=== PATIENT | female | born 1970 | race Caucasian/White ===

== ENCOUNTER → 2020-12-22 15:56 | Outpatient (BNVA) | payer SELFPAY | PROVIDERS: Family Provider Nurse Practitioner Family; PCP Nurse Practitioner Family; Visit Provider Nurse Practitioner Family | DX: R53.83 Other fatigue (principal); Z13.6 Encounter for screening for cardiovascular disorders; Z12.39 Encounter for other screening for malignant neoplasm of breast; G47.00 Insomnia, unspecified; G25.81 Restless legs syndrome; Z12.31 Encounter for screening mammogram for malignant neoplasm of breast; R53.82 Chronic fatigue, unspecified; R60.9 Edema, unspecified | CPT/HCPCS: 80053; 80061; 82306; 82607; 84443; 85025 ==

== ENCOUNTER 2021-02-04 11:41 | Outpatient (CLI) | payer BC, SELFPAY ==
--- NOTE | 2021-02-04 12:00 | MM_ITS ---
WS: [id number] BILATERAL DIGITAL SCREENING MAMMOGRAPHY WITH CAD CLINICAL INFORMATION: Z12.39 - Encounter for other screening for malignant neoplasm of breast HISTORY: Screening mammogram. No current complaints. COMPARISON: . TECHNIQUE: Bilateral CC and MLO views. FINDINGS: Scattered fibroglandular densities bilaterally. No suspicious focal mass, asymmetry, calcifications, or architectural distortion. No evidence of malignancy. MM/[place] [id number] IMPRESSION: BI-RADS: 1-Negative FOLLOW UP: 1 Year Follow-up Recommend return to annual screening mammography.
== END 2021-02-04 11:42 | disposition home or self-care (01) ==
LOC: RADSHAW 11:44
PROVIDERS: PCP Nurse Practitioner Family; Visit Provider Nurse Practitioner Family
DX: Z12.31 Encounter for screening mammogram for malignant neoplasm of breast (principal)
CPT/HCPCS: 77067

== ENCOUNTER → 2021-12-27 09:51 | Outpatient (BNVA) | payer OTHER, SELFPAY | PROVIDERS: PCP Nurse Practitioner Family; Visit Provider Nurse Practitioner Family | DX: M25.50 Pain in unspecified joint (principal); G25.81 Restless legs syndrome; Z13.6 Encounter for screening for cardiovascular disorders | CPT/HCPCS: 80053; 80061; 82306; 82607; 83735; 84550; 85025; 85651; 86038; 86140; 86200; 86431 ==

== ENCOUNTER 2022-02-23 14:11 | Outpatient (CLI) | payer OTHER, SELFPAY ==
--- NOTE | 2022-02-23 14:19 | MM_ITS ---
WS: [id number] BILATERAL 3D TOMOSYNTHESIS DIGITAL SCREENING MAMMOGRAPHY WITH CAD CLINICAL INFORMATION: Z12.31 - Encounter for screening mammogram for malignant ... HISTORY: Screening mammogram. No current complaints. COMPARISON: February 04, 2021 TECHNIQUE: Bilateral CC and MLO views. FINDINGS: Scattered fibroglandular densities bilaterally. No suspicious focal mass, asymmetry, calcifications, or architectural distortion. No evidence of malignancy. MM/[place] [id number] IMPRESSION: BI-RADS: 1-Negative FOLLOW UP: 1 Year Follow-up Recommend return to annual screening mammography.
== END 2022-02-23 14:12 | disposition home or self-care (01) ==
PROVIDERS: PCP Nurse Practitioner Family; Visit Provider Nurse Practitioner Family
DX: Z12.31 Encounter for screening mammogram for malignant neoplasm of breast (principal)
CPT/HCPCS: 77063; 77067

== ENCOUNTER 2022-05-19 12:15 | Outpatient (CLI) | payer OTHER, SELFPAY ==
--- NOTE | 2022-05-19 12:22 | XR_ITS ---
WS: [id number] DEXA (DUAL ENERGY X-RAY ABSORPTIOMETRY) Bone mineral density was performed using a MVP Vault machine. HISTORY: SCREENING/ASYMPTOMATIC MENOPAUSAL STATE COMPARISON: None available. Lumbar spine BMD (L1-L4): 1.118 g/cm2 T score: -0.5 Z score: -0.6 Total hip BMD: Left: 0.652 g/cm2. T score: -2.8 Z score: -2.8 Right: 0.743 g/cm2. T score: -2.1 Z score: -2.1 10 year probability of a major osteoporotic fracture is 22%. XR/XR DEXA axial skeleton* [id number] IMPRESSION: OSTEOPOROSIS based upon the WHO classification for females.
== END 2022-05-19 12:16 | disposition home or self-care (01) ==
LOC: RAD 12:16
PROVIDERS: PCP Nurse Practitioner Family; Visit Provider Nurse Practitioner Family
DX: Z78.0 Asymptomatic menopausal state (principal); M81.0 Age-related osteoporosis without current pathological fracture
CPT/HCPCS: 77080

== ENCOUNTER → 2023-01-26 16:00 | Outpatient (BNVA) | payer OTHER, SELFPAY | PROVIDERS: PCP Nurse Practitioner Family; Visit Provider Nurse Practitioner Family | DX: F32.9 Major depressive disorder, single episode, unspecified (principal); R35.0 Frequency of micturition; M54.50 Low back pain, unspecified; R73.9 Hyperglycemia, unspecified; M81.0 Age-related osteoporosis without current pathological fracture | CPT/HCPCS: 81000 ==

== ENCOUNTER → 2023-07-06 09:15 | Outpatient (BNVA) | payer OTHER, SELFPAY | PROVIDERS: PCP Nurse Practitioner Family; Visit Provider Nurse Practitioner Family | DX: M79.672 Pain in left foot (principal) | CPT/HCPCS: 73630 ==

== ENCOUNTER 2024-07-20 20:00 | Inpatient (IN) | payer BC, SELFPAY ==
[2024-07-20] VITALS (12 sets, daily range): BP systolic 124–173; BP diastolic 68–112; PULSE 96–110; RESP 14–29; TEMP 36.6–37.1; O2SAT 95–100; BMI 32.7; BMI 29.7
--- NOTE | 2024-07-20 20:05 | XRR_ITS ---
PROCEDURE INFORMATION: Exam: XR Chest Exam date and time: 07/20/2024 8:09 PM Age: 53 years old Clinical indication: Pain; Chest pressure; Patient HX: EMS arrival for cp with positive st elevation. TECHNIQUE: Imaging protocol: Radiologic exam of the chest. Views: 1 view. COMPARISON: CR XR chest 1V [id number] 08/17/2017 6:11 PM FINDINGS: Tubes, catheters and devices: Overlying pacer paddles and leads. Lungs: Decreased inspiration. Small amount of left basilar atelectasis. No infiltrate or consolidation. Pleural spaces: No pleural effusion or pneumothorax. Heart/Mediastinum: No significant cardiomegaly. Bones/joints: Visualized osseous structures show no acute abnormality. XR/XR chest 1V portable [id number] IMPRESSION: Decreased inspiration with small amount of left basilar atelectasis. No acute findings otherwise.
--- NOTE | 2024-07-20 20:05 | ECG_ITS ---
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1970 Requested By: Ori Munguia Order Number: [id number] Reading MD: Measurements Intervals [place] Rate: 96 P: 18 IA: 165 QRS: -3 QRSD: 81 T: 67 QT: 381 QTc: 481 Interpretive Statements SINUS RHYTHM POSSIBLE RIGHT VENTRICULAR CONDUCTION DELAY [RSR (QR) IN V1/V2] ST ELEVATION, CONSIDER INFERIOR INJURY [MARKED ST ELEVATION W/O NORMALLY INFLECTED T-WAVE IN II/aVF] ACUTE DC Compared to ECG 06/13/2018 10:38:49 ST (T wave) deviation now present Myocardial infarct finding now present Sinus bradycardia no longer present [email or web address]
[2024-07-20] MEDS: clopidogrel 300 mg Tablet 600 MG PO (20:09)
[2024-07-20] MEDS: heparin 5,000 unit/mL INJ 1 mL 4000 UNIT IVP (20:12)
--- NOTE | 2024-07-20 20:13 | XACV_ITS ---
Exam Room: 2 Ht: 170 cm Wt: 95 kg BSA: 2.15 m2 Gender: Female : 1970 Performing Physician(s): Dr. Sow Any Known Allergies: No known allergies Exam Priority: Routine Procedure(s): Procedure Description: Diagnostic procedure Procedure Description: PCI procedure Procedure Description: Drug Eluting Coronary Stent Procedure Description: PTCA Procedure Description: Coronary Angiography Diagnostic Cath Status: Emergency Diagnostic Findings * Inf STEMI. * Left main: Normal. * LAD: Minor irregularities. * Left circumflex artery: Proximal mid segment normal. Distal circumflex artery small vessel in the AV groove with no significant disease. Large size obtuse marginal with 80% thrombotic lesion, culprit for inferior STEMI. * Right coronary artery: No significant disease. Normal. PCI Status: Elective PCI Indication: Immediate PCI for STEMI Interventional Findings * Left main coronary artery was engaged with 6 Yoruba 3.5 XB guider. After IV heparin as per protocol. Run-through coronary wire was crossed through the lesion in the circumflex/obtuse marginal branch. * Predilatation was performed with 2.5 x 12 balloon at 8 jonelle. * Subsequently drug-eluting stent 2.75 x 30 was deployed at 10 jonelle. * Post procedure good angiographic result. ALEXIS-3 flow. * The right groin, the site of arterial access was successfully closed using Angio-Seal. * No complication related to the procedure. Decision for PCI with Surgical Consult: Yes Conclusions 1. Successful primary PCI of circumflex/obtuse marginal artery. Recommendations * Patient transferred to the ICU for post OH management. Interventional RX Recommendation: PCI w/o planned CABG Anticoagulation: Heparin Post Op Diagnosis: Description: Inferior STEMI, successful primary PCI of LCx/obtuse marginal vessel. Left Ventriculography Findings: * Not performed. Pressures Phase:Rest AO : 154 / 114 ( 134 ) @ 4:40:43 PM 148 / 107 ( 127 ) @ 4:40:43 PM 119 / 91 ( 104 ) @ 4:40:43 PM 111 / 81 ( 96 ) @ 4:40:43 PM Clinical Evaluation EBL: 5mL-10mL Procedural Details Pre-Procedure Time Out. Identified patient by full name and date of as verbalized by the patient/guarantor. Does the consent match the physician's order: N/A Emergent; Informed Consent not obtained due to time critical life threat. Inpatient/Outpatient History & Physical on Chart: N/A. Accurate & Complete Informed Consent: N/A Emergent; Informed Consent not obtained due to time critical life threat. If H&P is completed, is and addenduem needed: N/A Emergent; Informed Consent not obtained due to time critical life threat; If yes, is the addendum complete: N/A Emergent; Informed Consent not obtained due to time critical life threat. Visualize and Verify Site with Patient/Guarantor: N/A. Relevant Radiology Images available: N/A Emergent; Informed Consent not obtained due to time critical life threat. Pre-op teaching completed and patient verbalized understanding. The risks, benefits, and alternatives of sedation and/or procedure were discussed by physician. The patient agrees to continue. Procedure started. [facility] Clinical Fraility Score: 3: Managing Well. 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 Chest Pain Symptom Assessment: Typical Angina Symptoms. Cardiovascular Instability: Yes, if yes, Persistant Ischemic Symptoms. Correct patient, site and procedure confirmed by cath team. Current diagnosis: STEMI. PERRLA. Strong, equal hand telephone sex worker bilaterally. Lungs clear x 5 lobes. IV Site on Arrival: 20 gauge in the right anticubital. IV Site on Arrival: 20 gauge in the left anticubital. IV Fluids: 0.9% NaCl at KVO. 600 mL infused prior to incinerator plant laborer. Pre Procedural Pulses: right radial was 3+. Oxygen started at 2liters/min via nasal canula. right groin was prepped with chloroprep then draped in the usual sterile fashion. right radial was prepped with chloroprep then draped in the usual sterile fashion. Physician notified. Baseline sample Acquired. HR: 103 BPM. Patient's family in the incinerator plant laborer waiting room. Dr. Sow will update at the completion of the procedure. Equipment: 6F - Radial. Cardiac Cath Pack. ACIST Manifold Kit Model BT 2000. Heparinized Saline (2 units/mL), 1000 mL bag. Physician arrived. Physician scrubbed in. Immediate Pre-Procedure Time Out. Correct Patient: N/A Emergent; Informed Consent not obtained due to time critical life threat; Correct Procedure: N/A Emergent; Informed Consent not obtained due to time critical life threat; Correct Site: N/A Emergent; Informed Consent not obtained due to time critical life threat; Correct Patient Position: N/A Emergent; Informed Consent not obtained due to time critical life threat; Correct Supplies: N/A Emergent; Informed Consent not obtained due to time critical life threat; Dried Flammable Prep: N/A Emergent; Informed Consent not obtained due to time critical life threat; Blood Products Available: N/A Emergent; Informed Consent not obtained due to time critical life threat;. Lidocaine 1% infiltrated to the right radial. Arterial access obtained. Wire unable to thread. Wire and needle out. Dr. Sow holding monaual pressure. Current Diagnosis : STEMI. An attempt to gain access to the right radial artery was unsuccessful. Manual pressure was held as needed to stop the bleeding. Lidocaine 1% infiltrated to the right groin. Venous access obtained with micropuncture kit. Wire and needle out. Arterial access obtained with micropuncture set. A 6 moldovan JL3.5 catheter in over wire. Multiple views taken of left coronary artery. Catheter removed over the standard wire. 6 moldovan JR 4 guide catheter was inserted over the wire. Multiple views taken of right coronary artery. Guide Catheter removed over the standard wire. Dr. Sow scrubbed out to view cineography. Dr. Sow scrubbed back in. 6 moldovan XB 3.5 guide catheter was inserted over the wire. Runthrough guidewire was advanced through the guide catheter to lesion in the distal Circ. Inflation number : 1 A AB TREK 2.50X12 RX BALLOON was prepped and advanced across the Dist CX , then inflated to 8 JONELLE for 0:10 seconds. Inflation number: 2 The AB TREK 2.50X12 RX BALLOON was reinflated across the Dist CX, to 8 JONELLE for 0:06 seconds. Results checked. Balloon out. Inflation Number : 3 A MDT R MARIELLA 2.75X30 DEVON -Lot Number# [id number] was prepped and advanced across the Dist CX. The stent was deployed at 8 JONELLE for 0:15 seconds. Exp. . Stent balloon out over wire. Results checked. Wire out. PCI Indication : Immediate PCI for STEMI. Inflation number : 4 A AB TREK 2.50X12 RX BALLOON was prepped and advanced across the Dist CX , then inflated to 5 JONELLE for 0:22 seconds. Balloon out. Results checked. Wire out. Guide catheter out over the standard wire. A Right femoral angiogram was performed to determine safe placement of closure device. Lidocaine 1% infiltrated to the right groin. A Angio-Seal VIP ([facility]) was successful obtaining hemostatsis at the Right Femoral artery insertion site. Lot # [id number]. Exp. . Post Procedure: bilateral dorsalis pedis pulse Doppled. Post Procedure: bilateral posterior tibial pulse Doppled. PERRLA. Strong, equal hand telephone sex worker bilaterally. No VTE prophylaxis required. Medication's Wasted: Nitro = 49.8 mg. ACT drawn. Results out of rang high. Medication's Wasted: Heparin = 3000 units. Medication's Wasted: Other = Hydrazaline 10 mg mL. Total IV fluids: 100 mL. PCI Indication: STEMI. Post-op diagnosis: PCI of the Distal CX. Complications: none. Estimated blood loss: 5mL-10mL. Responsiveness - Normal response to verbal stimuli; alert and oriented, PERRLA. Airway - Unaffected, no intervention required; spontaneous ventilation. Circulation: W/N/L, pulses unchanged. Nausea/Vomiting: No. Procedure completed. Patient transferred by bed to ICU. Vital chart was stopped. Access Site Site: Right Femoral artery Sheath Size: 6 Fr Hemostasis Method: Angio-Seal VIP ([facility]) Hemostasis Success: Successful Complication Findings: No complication related to the procedure. Procedure Medications Start: 8:31 PM Stop: 8:31 PM Medication: Versed Amount: 1 mg Route: I.V. Start: 8:32 PM Stop: 8:32 PM Medication: Fentanyl Amount: 50 mcg Route: I.V. Start: 8:37 PM Stop: 8:37 PM Medication: Fentanyl Amount: 25 mcg Route: I.V. Start: 8:54 PM Stop: 8:54 PM Medication: Hydralazine Amount: 10 mg Route: I.V. Start: 9:01 PM Stop: 9:01 PM Medication: Heparin Amount: 8000 units Route: I.V. Start: 9:06 PM Stop: 9:06 PM Medication: Nitrogylcerin Amount: 200 mcg Route: I.C. Start: 9:24 PM Stop: 9:24 PM Medication: Fentanyl Amount: 25 mcg Route: I.V. I, the attending physician, have reviewed and verified all procedure medications. Yes, all medications given per verbal order Report Signatures Finalized by Abel Sow MD on 07/21/2024 08:39 AM
[2024-07-20] MEDS: ondansetron 2 mg/ML SDV 2 mL 4 MG IVP (20:14)
[2024-07-20] MEDS: morphine 4 mg/mL SDV 1 mL IM (20:15)
[2024-07-20 20:19] LABS: Basophils # 0.1 10^3/uL (0.0-0.1); Basophils % 1.2 %; Eosinophils # 0.2 10^3/uL (0.0-0.8); Eosinophils % 3.8 %; Hematocrit 45.1 % (36-47); Lymphocytes # 2.4 10^3/uL (0.8-4.8); Lymphocytes % 38.7 %; Mean Corpuscular HGB Conc 32.6 g/dL (30-55); Mean Corpuscular Hemoglobin 29.2 pg (27-33); Mean Corpuscular Volume 89.5 fl (85-98); Mean Platelet Volume 10.4 fL (7.4-10.4); Monocytes # 0.5 10^3/uL (0.2-0.9); Monocytes % 7.9 %; Neutrophils # 2.92 10^3/uL (1.8-7.7); Neutrophils % 48.1 %; Nucleated Red Blood Cells % 0 %; Platelet Count 295 10^3/cmm (157-399); Red Blood Count 5.04 10^6/uL (3.85-5.65); Red Cell Distribution Width 12.1 % (12.1-15.1); White Blood Count 6.07 10^3/uL (3.29-11.43)
--- NOTE | 2024-07-20 20:21 | ED_ITS ---
HPI - Chest Pain 2 General: Chief Complaint: Chest Pain Stated Complaint: stemi Time Seen by Provider: 07/20/24 20:05 History of Present Illness: 53-year-old female with no prior history of coronary disease. She says that she had pericarditis once before. She presents with chest discomfort. She called an ambulance after having had chest discomfort since around 430 when she was attempting to color her hair. She had had 1 episode prior in the day. She was found by paramedics to have inferior ST elevations on her EKG, and have a heart rate in the 40s. And route, she received aspirin, 1 sublingual nitroglycerin, and 0.5 mg of atropine which helped the heart rate. She rates her pain at an 8. She is mildly short of breath. STEMI alert was called from the field. Related Data Previous Rx's Medication Instructions Recorded ergocalciferol (vitamin D2) 1,250 See Rx Instructions .Route 03/21/22 mcg (50,000 unit) capsule .COMPLEX #12 caps alendronate 70 mg tablet (Fosamax) 70 mg PO .WEEKLY #12 tabs 01/26/23 duloxetine 20 mg capsule,delayed See Rx Instructions .Route 01/26/23 release .COMPLEX #90 ea trazodone 100 mg tablet See Rx Instructions .Route 01/26/23 .COMPLEX #90 tabs diclofenac sodium 75 mg 75 mg PO BID PRN pain #180 tabs 10/30/23 tablet,delayed release cyclobenzaprine 10 mg tablet See Rx Instructions .Route 11/19/23 .COMPLEX #90 tabs ropinirole 0.5 mg tablet See Rx Instructions .Route 03/21/24 .COMPLEX #30 tabs Allergies Allergy/AdvReac Type Severity Reaction Status Date / Time No Known Allergies Allergy Verified 10/30/23 16:14 [facility] ED 2 PFSH: Medical History Osteoporosis History of coronary angiogram GERD (gastroesophageal reflux disease) Restless legs syndrome (RLS) DONNA (obstructive sleep apnea) Surgical History History of tubal ligation History of vaginal surgery History of hysterectomy Social History Smoking and tobacco/nicotine status: never used tobacco/nicotine Second hand smoke exposure: No Alcohol intake: never Lives independently: Yes Household members: spouse Marital status: Current occupational status: employed Current gender identity: Female Physical Exam 2 Const: GENERAL APPEARANCE: cooperative, in distress and ill appearing; not frail appearing HENMT: COMMON NORMALS: normocephalic, atraumatic and Normal external nose present HEAD & SCALP: normocephalic and atraumatic FACE & SINUS: normal facial exam and face symmetric NOSE: Normal external nose present Eye: COMMON NORMALS: Equal, round and reactive pupils present and EOMs intact bilaterally PUPIL: Yes Equal, round and reactive pupils present Neck/C-Spine: GENERAL: Yes trachea midline Chest: CHEST: Yes Symmetrical chest wall rise Resp: COMMON NORMALS: normal respiratory effort, No retractions, No use of accessory muscles and clear to auscultation bilaterally AUSCULTATION: clear to auscultation bilaterally Cardio: COMMON NORMALS: regular rhythm RATE: tachycardic (Mildly) R HYTHM: regular rhythm GI: COMMON NORMALS: Normal to inspection, nondistended, normoactive bowel sounds present Extremity: COMMON NORMALS: no pedal edema Neuro: [place] COMA SCALE: document GCS findings Welcome coma scale eye opening: Spontaneous Welcome coma scale verbal response: Orientated Welcome coma scale motor response: Obey commands [place] coma scale total score: 15 S ENSORY EXAM: Yes extremities (intact) Psych: COMMON NORMALS: speech normal SPEECH: Yes normal speech Skin: COMMON NORMALS: no rashes or lesions noted GENERAL SKIN EXAM: no rashes or lesions noted Course 2 Vital Signs: Vital signs: Vital Signs Temperature 98.7 F 07/20/24 22:30 Pulse Rate 105 H 07/20/24 22:30 Respiratory Rate 22 H 07/20/24 22:30 Blood Pressure 157/75 07/20/24 22:30 Pulse Oximetry 99 07/20/24 22:30 Oxygen Delivery Me thod Room Air 07/20/24 22:30 MDM - Chest Pain Medical Decision Making EKG completed on arrival shows mild ST elevation in leads II, III and aVF. Elevations were more significant on the field EKG. EKG done in the field also shows around 1 mm or less elevation in V5 and V6. Rate is sinus. Intervals are normal. First troponin is 18. CBC is normal. BMP is not remarkable. Chest x- ray shows decreased inspiration without acute findings. Other laboratory available is not remarkable. Cardiology is at the bedside. The patient is received Plavix 600 mg, 4000 of heparin, and had already received 324 mg of aspirin in the field. She is given morphine and Zofran for pain. 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 Lab Data 07/20/24 20:10 07/20/24 20:10 Radiology Impressions Chest X-Ray 07/20/24 20:05 IMPRESSION: Decreased inspiration with small amount of left basilar atelectasis. No acute findings otherwise. Laboratory Results WBC 6.07 10^3/uL (3.29-11.43) 07/20/24 20:10 RBC 5.04 10^6/uL (3.85-5.65) 07/20/24 20:10 Hgb 14.70 g/dL (11.27-16.99) 07/20/24 20:10 Hct 45.1 % (36-47) 07/20/24 20:10 MCV 89.5 fl (85-98) 07/20/24 20:10 MCH 29.2 pg (27-33) 07/20/24 20:10 MCHC 32.6 g/dL (30-55) 07/20/24 20:10 RDW 12.1 % (12.1-15.1) 07/20/24 20:10 Plt Count 295 10^3/cmm (157-399) 07/20/24 20:10 MPV 10.4 fL (7.4-10.4) 07/20/24 20:10 Neut % (Auto) 48.1 % 07/20/24 20:10 Lymph % (Auto) 38.7 % 07/20/24 20:10 [place] % (Auto) 7.9 % 07/20/24 20:10 Eos % (Auto) 3.8 % 07/20/24 20:10 Baso % (Auto) 1.2 % 07/20/24 20:10 Neut # (Auto) 2.92 10^3/uL (1.8-7.7) 07/20/24 20:10 Lymph # (Auto) 2.4 10^3/uL (0.8-4.8) 07/20/24 20:10 [place] # (Auto) 0.5 10^3/uL (0.2-0.9) 07/20/24 20:10 Eos # (Auto) 0.2 10^3/uL (0.0-0.8) 07/20/24 20:10 Baso # (Auto) 0.1 10^3/uL (0.0-0.1) 07/20/24 20:10 Nucleated RBC % (auto) 0 % 07/20/24 20:10 Nucleated RBCs # 0.0 /100WBC 07/20/24 20:10 PT 11.90 SECONDS (12.1-14.9) L 07/20/24 20:10 INR 0.85 (0.8-1.2) 07/20/24 20:10 APTT 26.3 SECONDS (23.9-36.7) 07/20/24 20:10 Sodium 140 mmol/L (136-145) 07/20/24 20:10 Potassium 4.3 mmol/L (3.5-5.1) 07/20/24 20:10 Chloride 104 mmol/L (98-107) 07/20/24 20:10 Carbon Dioxide 25 mmol/L (22-29) 07/20/24 20:10 Anion Gap 15.3 (5-19) 07/20/24 20:10 BUN 13 mg/dL (6-20) 07/20/24 20:10 Creatinine 0.7 mg/dL (0.5-0.9) 07/20/24 20:10 GFR Calculation 86.9 mL/min (90-130) L 07/20/24 20:10 Glucose 144 mg/dL (65-115) H 07/20/24 20:10 Calculated Osmolality 293 mOsm/kg (285-295) 07/20/24 20:10 Calcium 9.6 mg/dL (8.5-10.5) 07/20/24 20:10 Total Bilirubin 0.2 mg/dL (0.15-1.2) 07/20/24 20:10 AST 17 U/L (0-32) 07/20/24 20:10 ALT 24 U/L (0-33) 07/20/24 20:10 Alkaline Phosphatase 122 U/L (35-105) H 07/20/24 20:10 Creatine Kinase 44 U/L (26-192) 07/20/24 20:10 Troponin T Baseline 18 ng/L (0-10) H 07/20/24 20:10 NT-Pro-B Natriuret Pep 86 pg/mL (0-125) 07/20/24 20:10 Total Protein 6.7 g/dL (6.6-8.7) 07/20/24 20:10 Albumin 4.5 g/dL (3.5-5.2) 07/20/24 20:10 Globulin 2.2 g/dL (1.3-4.6) 07/20/24 20:10 All radiology interpretation(s) finalized by discharge Critical Care Time 2 Critical Care Time: Critical Care Time: Yes Total Critical Care Time: 35 Attestation: This case had a high probability of a clinically significant, sudden, or life threatening deterioration of this patient's condition which required my full and direct attention, intervention and personal management. Time is independent of any procedures performed. Discharge Plan Discharge Patient Disposition: Admitted As Inpatient Admit Provider: Abel Sow Clinical Impression: STEMI (ST elevation myocardial infarction) Condition: Critical Coding Level of Care Code ED [facility] [employer] [place] for [facility] Funk
[2024-07-20 20:31] LABS: INR 0.85 (0.8-1.2)
[2024-07-20 20:32] LABS: Partial Thromboplastin Time 26.3 SECONDS (23.9-36.7)
[2024-07-20 20:36] LABS: Alanine Aminotransferase 24 U/L (0-33); Albumin Level 4.5 g/dL (3.5-5.2); Alkaline Phosphatase 122 U/L (35-105); Chloride 104 mmol/L (98-107); Creatine Phosphokinase 44 U/L (26-192); Potassium 4.3 mmol/L (3.5-5.1); Sodium 140 mmol/L (136-145)
[2024-07-20 20:38] LABS: Troponin(5th) Baseline 18 ng/L (0-10)
[2024-07-20 20:52] LABS: Anion Gap 15.3 (5-19); Blood Urea Nitrogen 13 mg/dL (6-20); Calcium 9.6 mg/dL (8.5-10.5); Carbon Dioxide 25 mmol/L (22-29); Creatinine Clr Calc Pharmacy 107.3434; Globulin 2.2 g/dL (1.3-4.6); Glomerular Filtration Rate 86.9 mL/min (90-130); Glucose 144 mg/dL (65-115); Osmolality Calculated 293 mOsm/kg (285-295); Total Bilirubin 0.2 mg/dL (0.15-1.2); Total Protein 6.7 g/dL (6.6-8.7)
[2024-07-20 20:53] LABS: Aspartate Amino Transferase 17 U/L (0-32)
[2024-07-20 21:02] LABS: NT Pro B Type Natriuretic Pept 86 pg/mL (0-125)
--- NOTE | 2024-07-20 21:47 | ECG_ITS ---
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
--- NOTE | 2024-07-20 22:02 | P.HP_ITS ---
Providers/Chief Complaint 2 Admitting Physician: Abel Sow MD Primary Care Provider: LUCAS Jose Chief Complaint: stemi History of Present Illness Chiquita FRITZ is a 53 year old female with no significant past medical history presented with chest pain which she was experiencing throughout the day and it got worse in the evening. The EMS was called and an EKG in the field showed ST elevation in the inferior leads. Had a heart rate slowed down to 40s on the way to hospital and she received atropine by the EMS. EKG on arrival showed ST elevation in the inferior lead III and aVF, consistent with inferior STEMI. Blood pressure 164/96. Pulse 80/min No pulmonary edema She was managed in the ER with STEMI protocol, given 600 mg of Plavix, Disprin 325 mg and 4000 unit of IV heparin. She was emergently brought to the cardiac Customer Experience Consultant. Angiogram revealed co- dominant left system. No significant disease in the LAD and RCA. 80% thrombotic lesion in the large OM branch of LCx. Successful angioplasty was performed. Postprocedure patient is clinically hemodynamically stable. She is chest pain-free. Review of Systems 2 Narrative: Detailed 10 point systemic review unremarkable except for as mentioned above in the history of present illness. Medications/Allergies Home Medications Medication Instructions Recorded Confirmed Last Taken Type ergocalciferol (vitamin D2) 1,250 See Rx Instructions .Route 03/21/22 10/30/23 Unknown Rx mcg (50,000 unit) capsule .COMPLEX #12 caps alendronate 70 mg tablet (Fosamax) 70 mg PO .WEEKLY #12 tabs 01/26/23 10/30/23 Unknown Rx duloxetine 20 mg capsule,delayed See Rx Instructions .Route 01/26/23 10/30/23 Unknown Rx release .COMPLEX #90 ea trazodone 100 mg tablet See Rx Instructions .Route 01/26/23 10/30/23 Unknown Rx .COMPLEX #90 tabs diclofenac sodium 75 mg 75 mg PO BID PRN pain #180 tabs 10/30/23 10/30/23 Unknown Rx tablet,delayed release cyclobenzaprine 10 mg tablet See Rx Instructions .Route 11/19/23 Unknown Rx .COMPLEX #90 tabs ropinirole 0.5 mg tablet See Rx Instructions .Route 03/21/24 Unknown Rx .COMPLEX #30 tabs Allergies Allergy/AdvReac Type Severity Reaction Status Date / Time No Known Allergies Allergy Verified 10/30/23 16:14 PFSH Acute 2 PFSH: Medical History Osteoporosis History of coronary angiogram GERD (gastroesophageal reflux disease) Restless legs syndrome (RLS) DONNA (obstructive sleep apnea) Surgical History History of tubal ligation History of vaginal surgery History of hysterectomy Social History Smoking and tobacco/nicotine status: never used tobacco/nicotine Second hand smoke exposure: No Alcohol intake: never Lives independently: Yes Household members: spouse Marital status: Current occupational status: employed Current gender identity: Female Vitals/I&O/Wt Last Vital Signs Temp 97.8 F 07/20/24 20:00 Pulse 109 H 07/20/24 20:16 Resp 18 07/20/24 20:16 BP 173/112 07/20/24 20:16 Pulse Ox 100 07/20/24 20:16 O2 Del Method Room Air 07/20/24 20:16 Weight last 48 hrs Weight 209 lb Physical Exam 2 Narrative: Patient is now laying comfortably on the bed, post primary angioplasty of circumflex/OM. hemodynamically stable Const: COMMON NORMALS: no acute distress, patient oriented x3, healthy appearing and alert HENMT: OTHER: Normal Eye: OTHER: Normal Chest: OTHER: No sole leveler use of muscles. No tenderness over the chest. Resp: OTHER: Good air entry on auscultation of chest bilaterally. No added sounds. Cardio: OTHER: Normal first and second heart sounds. No added sounds. There is no jugular venous distention. GI: OTHER: Abdominal soft nontender. Bowel sounds audible. Extremity: NARRATIVE EXTREMITY EXAM: No lower extremity edema. Distal pulses palpable. Neuro: OTHER: Grossly intact. She moves all 4 limbs. Skin: NARRATIVE SKIN EXAM: Skin warm and dry. Data 07/20/24 20:10 07/20/24 20:10 A&P Assessment and plan (1) STEMI (ST elevation myocardial infarction): 53-year-old female patient with no significant past medical history presented with - Inferior STEMI Successful primary angioplasty of circumflex/OM branch. Post PCI patient is clinically and hemodynamically stable. No heart failure. Patient is being admitted to ICU for post PCI management of inferior STEMI. Plan: 1. DAPT 2. Statins 3. Low-dose beta-lindsey, starting with metoprolol 12.5 mg 4. Will observe for blood pressure Attestations 2 Medical Necessity Statement*: Acute inferior STEMI. Primary angioplasty of circumflex/OM performed. Coding Level of Care Code 80130 Diagnoses STEMI (ST elevation myocardial infarction) I21.3 Time Spent (min) 35
[2024-07-20] MEDS: metoprolol tartrate 25 mg Tablet PO (22:26)
[2024-07-20] MEDS: temazepam 15 mg Capsule PO (22:26)
[2024-07-20] MEDS: aspirin 325 mg Tablet PO (22:26)
[2024-07-20] MEDS: sodium chloride 0.9% 1,000 ML 50 ML IV (22:28)
[2024-07-21] VITALS (27 sets, daily range): BP systolic 103–162; BP diastolic 56–96; PULSE 74–112; RESP 13–21; TEMP 37–37.1; O2SAT 94–99
--- NOTE | 2024-07-21 01:57 | PC.NURSE ---
TR Band Removed: TR band removed per protocol @0154. Dressing consist of gauze secured w/ tegaderm. Reinforced education on R. Arm restrictions, pt verbalized understanding. See Post Cardiac Cath Flow Sheet for site observations. Radial pulse present, color normal, no hemotoma at this time.
--- NOTE | 2024-07-21 02:05 | ECG_ITS ---
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
[2024-07-21 03:08] LABS: Basophils # 0.1 10^3/uL (0.0-0.1); Basophils % 0.4 %; Eosinophils % 0.2 %; Lymphocytes # 1.6 10^3/uL (0.8-4.8); Lymphocytes % 14.2 %; Mean Corpuscular HGB Conc 32.3 g/dL (30-55); Mean Corpuscular Hemoglobin 29.2 pg (27-33); Mean Corpuscular Volume 90.5 fl (85-98); Mean Platelet Volume 10.7 fL (7.4-10.4); Monocytes # 0.8 10^3/uL (0.2-0.9); Monocytes % 7.5 %; Neutrophils # 8.67 10^3/uL (1.8-7.7); Neutrophils % 77.4 %; Nucleated Red Blood Cells % 0 %; Platelet Count 292 10^3/cmm (157-399); Red Blood Count 4.31 10^6/uL (3.85-5.65); Red Cell Distribution Width 12.1 % (12.1-15.1)
[2024-07-21 03:53] LABS: Anion Gap 11.5 (5-19); Blood Urea Nitrogen 11 mg/dL (6-20); Calcium 8.6 mg/dL (8.5-10.5); Carbon Dioxide 26 mmol/L (22-29); Chloride 107 mmol/L (98-107); Creatinine Clr Calc Pharmacy 119.5597; Glomerular Filtration Rate 103.8 mL/min (90-130); Glucose 176 mg/dL (65-115); Osmolality Calculated 294 mOsm/kg (285-295); Potassium 4.5 mmol/L (3.5-5.1); Sodium 140 mmol/L (136-145)
[2024-07-21] MEDS: acetaminophen 325 mg Tablet 650 MG PO (06:52)
--- NOTE | 2024-07-21 07:55 | PC.NURSE ---
Verbal order from Dr. Sow for Protonix 40mg PO Daily.
[2024-07-21] MEDS: pantoprazole DR 40 mg Tablet PO (08:31)
[2024-07-21] MEDS: aspirin 81 mg EC Tablet PO (08:31)
[2024-07-21] MEDS: clopidogrel 75 mg Tablet PO (08:31)
--- NOTE | 2024-07-21 09:18 | ECG_ITS ---
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1970 Requested By: Abel Sow Order Number: [id number] Reading MD: Measurements Intervals [place] Rate: 81 P: 22 IN: 168 QRS: -41 QRSD: 86 T: -45 QT: 380 QTc: 442 Interpretive Statements SINUS RHYTHM LEFT AXIS DEVIATION [QRS AXIS < -30] POSSIBLE RIGHT VENTRICULAR CONDUCTION DELAY [RSR (QR) IN V1/V2] ST DEVIATION AND MODERATE T-WAVE ABNORMALITY, CONSIDER LATERAL ISCHEMIA [-0.1+ mV T-WAVE IN I/aVL/V5/V6] ST DEVIATION AND MODERATE T-WAVE ABNORMALITY, CONSIDER INFERIOR ISCHEMIA [-0.1+ mV T-WAVE IN II/aVF] [id number]
--- NOTE | 2024-07-21 09:28 | PC.PHAR ---
pharmacy hasnt filled anything since march 2024
--- NOTE | 2024-07-21 10:24 | PM.PN ---
Documented by User: Lucia Nino NP 07/21/24 10:29 Subjective Subjective: This is a very pleasant 53-year-old female who is status post successful primary PCI of circumflex/obtuse marginal artery for STEMI in the inferior region. Patient doing well today. Blood pressure 120/93 oxygen saturation 98 percent on room air. Patient currently on dual antiplatelet therapy with aspirin and Plavix statin therapy. Did receive 1 dose of metoprolol tartrate 25 mg last night. Patient tolerated well. No bradycardia present. No hypotension. Patient denies any chest pain or shortness of breath at this time. No evidence of acute CHF Medications: Reviewed: Yes Vitals/I&O/Wt Last Vital Signs Temp 98.7 F 07/21/24 09:00 Pulse 82 07/21/24 09:00 Resp 20 H 07/21/24 09:00 BP 120/93 07/21/24 09:00 Pulse Ox 97 07/21/24 09:00 O2 Del Method Room Air 07/21/24 09:00 07/20/24 07/21/24 07/21/24 22:59 06:59 14:59 Intake Total 378.333 / 378.333 222 / 222 Output Total 150 / 150 175 / 325 Balance -150 / -150 203.333 / 53.333 222 / 222 Weight last 48 hrs Weight 191 lb 6.4 oz Weight 190 lb 4.8 oz Weight 209 lb Physical Exam Narrative: General: No apparent distress, healthy appearing, well nourished HENMT: normoceophalic Eye: PERRL Neck: No carotid bruit bilaterally Muskuloskeletal: Full ROM Lymphatic: no lymphedema noted Respiratory: Normal respiratory effort, clear to auscultation bilaterally throughout all lung woodson, no use of accessory muscles Cardio: No JVD, regular rate, regular rhythm, S1 S2 normal, no murmurs, peripheral pulses 2+ throughout Extremities: Full ROM, normal, normal capillary refill, no cyanosis or edema Neuro: Alert and oriented x4, no focal motor deficits Psych: Affect normal, denies suicidal ideation, mental status grossly normal Skin: No rashes or lesions noted, no wounds Data 07/22/24 03:38 07/22/24 03:38 A&P Assessment and plan (1) STEMI (ST elevation myocardial infarction): 53-year-old female patient with no significant past medical history presented with - Inferior STEMI Successful primary angioplasty of circumflex/OM branch. Post PCI patient is clinically and hemodynamically stable. No heart failure. Patient may be transferred to CSU at this time. Creatinine wnl. Qualifiers: Involved coronary artery: other inferior wall coronary artery Qualified Code(s): I21.19 - ST elevation (STEMI) myocardial infarction involving other coronary artery of inferior wall Plan Plan: 1. DAPTx2 years 2. Statins 3. Low-dose beta-lindsey, starting with metoprolol 12.5 mg 4. Will observe for blood pressure and heart rate Attestations Medical Necessity Statement*: Patient is status post PCI to the circumflex for inferior STEMI thus requiring at least 2 days of stay. Coding Level of Care Code Acute Code for [facility] Fwd Diagnoses ST elevation myocardial infarction (STEMI) involving other coronary artery of inferior wall I21.19 Involved coronary artery: other inferior wall coronary artery Documented by User: Yuan Shannon MD 07/22/24 08:43 Data 07/22/24 03:38 07/22/24 03:38 A&P Assessment and plan (1) STEMI (ST elevation myocardial infarction): Patient was evaluated and cared for in conjunction with an advanced practice practitioner. I personally examined the patient and reviewed the chart and all pertinent data including imaging, telemetry, and laboratory results. I discussed the patient in detail with the advanced practice practitioner. Please see their note for complete H&P testing result and agreed upon plan of care for the patient. 53-year-old who was treated with drug-eluting stent to obtuse marginal for ST elevation TN. Postop patient continues to do fine from a cardiovascular perspective GENERAL: Patient is alert, awake and oriented x3. HEART: Regular S1 and S2. No murmur, rub or gallop. LUNGS: Clear to auscultate bilaterally. CENTRAL NERVOUS SYSTEM: Grossly nonfocal. EXTREMITIES: Lower extremities with out edema bilaterally. Assessment and plan ST elevation TN inferolateral: Status post PCI to obtuse marginal with single drug-eluting stent which was the culprit vessel. Continue dual antiplatelet therapy for 1 year continue aspirin statin beta-lindsey. Echocardiogram showed normal ejection fraction Hypertension: Moderately elevated will optimize medications. Will add LANA inhibitor Hyperlipidemia: Continue statin Plan: Possible discharge tomorrow 53-year-old female patient with no significant past medical history presented with - Inferior STEMI Successful primary angioplasty of circumflex/OM branch. Post PCI patient is clinically and hemodynamically stable. No heart failure. Patient may be transferred to CSU at this time. Creatinine wnl. Qualifiers: Involved coronary artery: other inferior wall coronary artery Qualified Code(s): I21.19 - ST elevation (STEMI) myocardial infarction involving other coronary artery of inferior wall Coding Level of Care Code Acute Code for [facility] Fwd Diagnoses ST elevation myocardial infarction (STEMI) involving other coronary artery of inferior wall I21.19 Involved coronary artery: other inferior wall coronary artery
[2024-07-21] MEDS: acetaminophen-codeine 300-30mg Tablet 1 TAB PO ×2 (13:46→18:53)
[2024-07-21] MEDS: temazepam 15 mg Capsule PO (19:58)
[2024-07-21] MEDS: metoprolol succinate ER (24 HR) 25 mg Tablet 12.5 MG PO (19:59)
[2024-07-21] MEDS: atorvastatin 40 mg Tablet PO (20:00)
--- NOTE | 2024-07-21 21:51 | USCV_ITS ---
Chiquita Gaspar Age: 53 Gender: F : 1970 Exam Date: 07/21/2024 09:34 Ordering Phys: Abel Sow MD ([email or web address]) Technologist: [place] [facility] [place]: cp BP: 141 / 88 HR: 109 Rhythm: Sinus Technical Quality: Adequate MEASUREMENTS (Male / Female) Normal Values 2D ECHO LV Diastolic Diameter PLAX 4.4 cm 4.2 - 5.9 / 3.9 - 5.3 cm IVS Diastolic Thickness 1.4 cm 0.6 - 1.0 / 0.6 - 0.9 cm IVS Systolic Thickness 1.7 cm LVPW Diastolic Thickness 1.1 cm 0.6 - 1.0 / 0.6 - 0.9 cm LVPW Systolic Thickness 1.7 cm LVOT Diameter 2.2 cm LV Ejection Fraction 2D Teich 61.1 % LV Ejection Fraction MOD 4C 58.9 % LV Ejection Fraction MOD 2C 56.0 % LV Ejection Fraction 2C AL 54.2 % LA Diameter 2.9 cm RA Systolic Volume 4C AL 25.4 ml RA Systolic Volume 4C MOD 23.1 ml Aorta at Sinotubular Diameter 3.1 cm M-MODE LA Ao Ratio MM 0.9 AV Cusp Separation MM 2.2 cm DOPPLER AV Peak Velocity 132.0 cm/s LVOT Peak Velocity 79.0 cm/s AV Area Cont Eq vti 2.7 cm squared AV Area Cont Eq pk 2.3 cm squared MV Peak Velocity 137.0 cm/s MV Area PHT 6.2 cm squared Mitral E to A Ratio 0.8 TV Peak Velocity 180.0 cm/s TR Peak Velocity 230.0 cm/s TR Peak Gradient 21.2 mmHg TV Peak E Velocity 75.0 cm/s Right Atrial Pressure 3.0 mmHg Pulmonary Artery Systolic Pressu 24.2 mmHg PV Peak Velocity 98.0 cm/s FINDINGS Left Ventricle Normal left ventricular cavity size. Normal left ventricular systolic function. Left ventricular ejection fraction is estimated at 60 %. No wall motion abnormality.Grade I/IV diastolic dysfunction (abnormal relaxation filling pattern), normal to mildly elevated filling pressures. Right Ventricle The right ventricle is normal in size and function. Right Atrium The right atrium is normal in size. Left Atrium The left atrium is normal in size. Mitral Valve Mildly thickened mitral valve. No mitral valve stenosis. Mild mitral valve regurgitation. Aortic Valve Structurally normal aortic valve without significant sclerosis or stenosis. There is no aortic regurgitation. Tricuspid Valve Structurally normal tricuspid valve without significant stenosis or regurgitation. Pulmonary artery systolic pressure is normal. Pulmonic Valve Structurally normal pulmonic valve without significant stenosis. There is no pulmonic regurgitation. Pericardium Normal pericardium without effusion. Aorta Normal ascending aorta dimension. IVC The inferior vena cava appears normal. CONCLUSIONS Normal left ventricular cavity size. Normal left ventricular systolic function. Left ventricular ejection fraction is estimated at 60 %. No wall motion abnormality.Grade I/IV diastolic dysfunction (abnormal relaxation filling pattern), normal to mildly elevated filling pressures. Mildly thickened mitral valve. No mitral valve stenosis. Mild mitral valve regurgitation. There is no pericardial effusion. Pulmonary artery systolic pressure is within normal limits. Right atrial pressure is around 5 mm of mercury. Yuan Shannon MD (Electronically Signed) Final Date: 22 July 2024 06:43 S
[2024-07-22] VITALS (29 sets, daily range): BP systolic 123–161; BP diastolic 77–110; PULSE 2–108; RESP 13–25; TEMP 37–37.7; O2SAT 92–98
[2024-07-22 04:05] LABS: Basophils # 0.1 10^3/uL (0.0-0.1); Eosinophils # 0.2 10^3/uL (0.0-0.8); Eosinophils % 2.9 %; Hematocrit 41.5 % (36-47); Lymphocytes # 1.9 10^3/uL (0.8-4.8); Lymphocytes % 23.1 %; Mean Corpuscular HGB Conc 31.6 g/dL (30-55); Mean Corpuscular Hemoglobin 29.5 pg (27-33); Mean Corpuscular Volume 93.5 fl (85-98); Mean Platelet Volume 10.5 fL (7.4-10.4); Monocytes # 0.8 10^3/uL (0.2-0.9); Monocytes % 9.3 %; Neutrophils # 5.25 10^3/uL (1.8-7.7); Neutrophils % 63.3 %; Nucleated Red Blood Cells % 0 %; Platelet Count 279 10^3/cmm (157-399); Red Blood Count 4.44 10^6/uL (3.85-5.65); Red Cell Distribution Width 12.4 % (12.1-15.1); White Blood Count 8.28 10^3/uL (3.29-11.43)
[2024-07-22 04:22] LABS: Anion Gap 13.4 (5-19); Blood Urea Nitrogen 8 mg/dL (6-20); Calcium 9.2 mg/dL (8.5-10.5); Carbon Dioxide 29 mmol/L (22-29); Chloride 102 mmol/L (98-107); Creatinine Clr Calc Pharmacy 119.8935; Glomerular Filtration Rate 103.8 mL/min (90-130); Glucose 127 mg/dL (65-115); Osmolality Calculated 290 mOsm/kg (285-295); Potassium 4.4 mmol/L (3.5-5.1); Sodium 140 mmol/L (136-145)
[2024-07-22] MEDS: pantoprazole DR 40 mg Tablet PO (09:13)
[2024-07-22] MEDS: ropinirole 0.25 mg Tablet 0.5 MG PO (09:13)
[2024-07-22] MEDS: aspirin 81 mg EC Tablet PO (09:13)
[2024-07-22] MEDS: clopidogrel 75 mg Tablet PO (09:13)
[2024-07-22] MEDS: metoprolol succinate ER (24 HR) 25 mg Tablet PO (09:25)
[2024-07-22] MEDS: lisinopril 5 mg Tablet PO (11:05)
--- NOTE | 2024-07-22 15:07 | P.DS_ITS ---
Discharge Providers Date of Admission: 07/20/24 21:51 Date of Discharge: July 22, 2024 Attending Provider at Admission: Abel Sow MD Attending Provider at Discharge: Yuan Shannon MD Primary Care Provider: LUCAS Jose Diagnoses at Discharge Discharge Diagnosis (1) STEMI (ST elevation myocardial infarction): Details from hospital stay: Patient status post PCI to the circumflex OM. Patient denies any further chest pain. Will need to continue dual antiplatelet therapy for at least 1 year. Continue beta-lindsey. Metoprolol succinate 25 mg was started here. Status: Acute Qualifiers: Involved coronary artery: other inferior wall coronary artery Qualified Code(s): I21.19 - ST elevation (STEMI) myocardial infarction involving other coronary artery of inferior wall (2) Hypertension: Details from hospital stay: Lisinopril 5 mg added as well as metoprolol increased to 25 mg daily. Patient to keep a blood pressure and heart rate log and follow-up in the clinic in 1 week. Status: Acute Qualifiers: Hypertension type: primary hypertension Qualified Code(s): I10 - Essential (primary) hypertension Reason for Visit Reason for Visit: stemi Brief History: Chiquita FRITZ is a 53 year old female with no significant past medical history presented with chest pain which she was experiencing throughout the day and it got worse in the evening. The EMS was called and an EKG in the field showed ST elevation in the inferior leads. Had a heart rate slowed down to 40s on the way to hospital and she received atropine by the EMS. EKG on arrival showed ST elevation in the inferior lead III and aVF, consistent with inferior STEMI. Hospital Course Hospital Course She was managed in the ER with STEMI protocol, given 600 mg of Plavix, Aspirin 325 mg and 4000 unit of IV heparin. 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 Angiogram revealed co- dominant left system. No significant disease in the LAD and RCA. 80% thrombotic lesion in the large OM branch of LCx. Successful angioplasty was performed. Postprocedure patient is clinically hemodynamically stable. She is chest pain-free. Her blood pressure was stable. Physical Exam Narrative: General: No apparent distress, healthy appearing, well nourished HENMT: normoceophalic Eye: PERRL Neck: No carotid bruit bilaterally Muskuloskeletal: Full ROM Lymphatic: no lymphedema noted Respiratory: Normal respiratory effort, clear to auscultation bilaterally throughout all lung woodson, no use of accessory muscles Cardio: No JVD, regular rate, regular rhythm, S1 S2 normal, no murmurs, peripheral pulses 2+ throughout Extremities: Full ROM, normal, normal capillary refill, no cyanosis or edema Neuro: Alert and oriented x4, no focal motor deficits Psych: Affect normal, denies suicidal ideation, mental status grossly normal Skin: right groin heart cath insertion site clean dry intact well-approximated no signs or symptoms of hematoma evident Discharge Data Studies Completed and Pending Completed Studies During Hospitalization Category Date Time Status CLIENT SERVICE SUPERVISOR request for service Stat Exams 07/20/24 20:13 Completed XR chest 1V portable [id number] Stat Exams 07/20/24 20:05 Completed CV. echo complete* [id number] Routine Ultrasound 07/21/24 21:51 Completed Radiology Impressions Chest X-Ray 07/20/24 20:05 IMPRESSION: Decreased inspiration with small amount of left basilar atelectasis. No acute findings otherwise. Laboratory Results WBC 8.28 10^3/uL (3.29-11.43) 07/22/24 03:38 RBC 4.44 10^6/uL (3.85-5.65) 07/22/24 03:38 Hgb 13.10 g/dL (11.27-16.99) 07/22/24 03:38 Hct 41.5 % (36-47) 07/22/24 03:38 MCV 93.5 fl (85-98) 07/22/24 03:38 MCH 29.5 pg (27-33) 07/22/24 03:38 MCHC 31.6 g/dL (30-55) 07/22/24 03:38 RDW 12.4 % (12.1-15.1) 07/22/24 03:38 Plt Count 279 10^3/cmm (157-399) 07/22/24 03:38 MPV 10.5 fL (7.4-10.4) H 07/22/24 03:38 Neut % (Auto) 63.3 % 07/22/24 03:38 Lymph % (Auto) 23.1 % 07/22/24 03:38 [place] % (Auto) 9.3 % 07/22/24 03:38 Eos % (Auto) 2.9 % 07/22/24 03:38 Baso % (Auto) 1.0 % 07/22/24 03:38 Neut # (Auto) 5.25 10^3/uL (1.8-7.7) 07/22/24 03:38 Lymph # (Auto) 1.9 10^3/uL (0.8-4.8) 07/22/24 03:38 [place] # (Auto) 0.8 10^3/uL (0.2-0.9) 07/22/24 03:38 Eos # (Auto) 0.2 10^3/uL (0.0-0.8) 07/22/24 03:38 Baso # (Auto) 0.1 10^3/uL (0.0-0.1) 07/22/24 03:38 Nucleated RBC % (auto) 0 % 07/22/24 03:38 Nucleated RBCs # 0.0 /100WBC 07/22/24 03:38 PT 11.90 SECONDS (12.1-14.9) L 07/20/24 20:10 INR 0.85 (0.8-1.2) 07/20/24 20:10 APTT 26.3 SECONDS (23.9-36.7) 07/20/24 20:10 Sodium 140 mmol/L (136-145) 07/22/24 03:38 Potassium 4.4 mmol/L (3.5-5.1) 07/22/24 03:38 Chloride 102 mmol/L (98-107) 07/22/24 03:38 Carbon Dioxide 29 mmol/L (22-29) 07/22/24 03:38 Anion Gap 13.4 (5-19) 07/22/24 03:38 BUN 8 mg/dL (6-20) 07/22/24 03:38 Creatinine 0.6 mg/dL (0.5-0.9) 07/22/24 03:38 GFR Calculation 103.8 mL/min (90-130) 07/22/24 03:38 Glucose 127 mg/dL (65-115) H 07/22/24 03:38 Calculated Osmolality 290 mOsm/kg (285-295) 07/22/24 03:38 Calcium 9.2 mg/dL (8.5-10.5) 07/22/24 03:38 Total Bilirubin 0.2 mg/dL (0.15-1.2) 07/20/24 20:10 AST 17 U/L (0-32) 07/20/24 20:10 ALT 24 U/L (0-33) 07/20/24 20:10 Alkaline Phosphatase 122 U/L (35-105) H 07/20/24 20:10 Creatine Kinase 44 U/L (26-192) 07/20/24 20:10 Troponin T Baseline 18 ng/L (0-10) H 07/20/24 20:10 NT-Pro-B Natriuret Pep 86 pg/mL (0-125) 07/20/24 20:10 Total Protein 6.7 g/dL (6.6-8.7) 07/20/24 20:10 Albumin 4.5 g/dL (3.5-5.2) 07/20/24 20:10 Globulin 2.2 g/dL (1.3-4.6) 07/20/24 20:10 Procedures Performed Left heart cath Conclusions 1. Successful primary PCI of circumflex/obtuse marginal artery. Vitals Last Vital Signs Temp 100 F H 07/22/24 13:45 Pulse 100 07/22/24 14:30 Resp 17 07/22/24 13:45 BP 154/98 07/22/24 13:30 Pulse Ox 96 07/22/24 13:30 O2 Del Method Room Air 07/22/24 13:30 Discharge Plan Discharge Patient Disposition: Home Condition: Stable Prescriptions: New atorvastatin 40 mg Tablet 40 mg PO BEDTIME 30 Days Qty: 30 0RF clopidogrel 75 mg Tablet 75 mg PO DAILY 90 Days Qty: 90 3RF aspirin 81 mg Tablet,Delayed Release (Dr/Ec) 81 mg PO DAILY 90 Days Qty: 90 3RF nitroglycerin 0.4 mg Tablet, Sublingual 0.4 mg sublingual Q5M PRN (Reason: Chest Pain) 30 Days Qty: 20 0RF metoprolol succinate 25 mg Tablet Extended Release 24 Hr 25 mg PO DAILY 30 Days Qty: 30 0RF lisinopril 5 mg tablet 5 mg PO DAILY Qty: 1 0RF Continued ropinirole 0.5 mg tablet See Rx Instructions .ROUTE .COMPLEX Qty: 30 0RF Dose Instruction: TAKE ONE TABLET BY MOUTH ONCE DAILY. Rx Instructions: TAKE ONE TABLET BY MOUTH ONCE DAILY. Discharge Orders: Discharge Order (Routine); Ordered 07/22/24 Ordered By: Lucia Nino Referrals: Carmen Aguiar FNP [Nurse Practitioner] - 08/05/24 3:00 pm Discharge Diet: Advance as tolerated and Cardiac Patient Instructions: Metoprolol (By mouth), Lisinopril (By mouth), Aspirin (By mouth), Nitroglycerin, Rapid Release (By mouth) (NitroMist, Nitrolingual,..., Atorvastatin (By mouth), Clopidogrel (By mouth), Heart Attack (DC), Coronary Angioplasty (DC), Heart Healthy Diet (ED), Heart Healthy Diet (DC), Opioid Safety Activity Restrictions/Additional Instructions: Discussed with patient no heavy lifting more than a gallon of milk as well as going up or down steps for 3 days. No driving for 3 days. Monitor for and report signs or symptoms of bleeding. Monitor for and report s/s of infection such as fever 101 or greater, swelling, redness or pain to the groin. Plan of Treatment: Plan is to continue dual antiplatelet therapy aspirin Plavix x 1 year continue statin therapy continue beta-lindsey and LANA inhibitor. Patient to follow-up in the clinic in 1 week with blood pressure and heart rate log. Discharge Attestations Time Spent in Discharge Care*: less than 30 min Quality Metrics Clinical Quality Measures [ No reported AMI, CVA or VTE this stay] Coding Level of Care Code Acute Code for [facility] Fwd Diagnoses ST elevation myocardial infarction (STEMI) involving other coronary artery of inferior wall I21.19 Involved coronary artery: other inferior wall coronary artery Primary hypertension I10 Hypertension type: primary hypertension
== END 2024-07-22 15:05 | disposition home or self-care (01) | DRG 322 ==
LOC: ER 21:50 → ICU 22:56
PROVIDERS: Nurse Practitioner Family; Admitting Provider Internal Medicine Cardiovascular Disease; Emergency Provider Emergency Medicine; PCP Nurse Practitioner Family; Visit Provider Internal Medicine Cardiovascular Disease
PROC: 027034Z Dilation of Coronary Artery, One Artery with Drug-eluting Intraluminal Device, Percutaneous Approach (ICD-10-PCS; principal; 2024-07-20 20:20)
DX: I21.19 ST elevation (STEMI) myocardial infarction involving other coronary artery of inferior wall (principal); I10 Essential (primary) hypertension; G25.81 Restless legs syndrome; G47.33 Obstructive sleep apnea (adult) (pediatric)
CPT/HCPCS: 36415; 71045; 80048; 80053; 82550; 83880; 84484; 85025; 85347; 85610; 85730; 93005; 93306; 93454; 96374; 96375; 96376; 99152; 99153; C1725; C1760; C1769; C1874; C1887; C1894; C9600; G0269; J0360; J1644; J2250; J2270; J2405; J3010; J3490; J7030; Q9967

== ENCOUNTER → 2024-08-05 16:27 | Outpatient (BNVA) | payer BC, SELFPAY | PROVIDERS: PCP Nurse Practitioner Family; Visit Provider Nurse Practitioner Family | DX: I25.10 Atherosclerotic heart disease of native coronary artery without angina pectoris (principal); I10 Essential (primary) hypertension; I25.2 Old myocardial infarction | CPT/HCPCS: 36415; 80048 ==

== ENCOUNTER → 2024-09-18 10:37 | Outpatient (BNVA) | payer BC, SELFPAY | PROVIDERS: PCP Nurse Practitioner Family; Visit Provider Nurse Practitioner Family | DX: I10 Essential (primary) hypertension (principal); R53.83 Other fatigue | CPT/HCPCS: 80053; 80061; 82306; 82607; 83036; 83735; 84443; 85025 ==

== ENCOUNTER 2024-12-03 08:04 | Outpatient (CLI) | payer BC, SELFPAY ==
--- NOTE | 2024-12-03 08:27 | ECG_ITS ---
[employer] Test Date: 2024-12-03 Pat Name: Chiquita Gaspar Department: Room: Gender: Female Rounder Hand: : 1970 Requested By: Yuan Shannon Order Number: [id number] Elaine MD: Rainer Henley M.D. Interpretive Statements Lung unchanged pre/post procedure; Intraprocedure shortess of breath; Symptoms resoled by discharge PROCEDURE: The baseline electrocardiogram showed [normal sinus rhythm with nonspecific T wave changes. Occasional PVCs. At the baseline, the patient's blood pressure was 158/102 mm Hg with a heart rate of 96. The patient exercised for 4 minutes on a standard Maximilian protocol. Patient attained a maximum heart rate of 169 beats per minute(103% of the maximum predicted heart rate) with a blood pressure at the peak exercise of 196/102 mm Hg. The EKG at the peak exercise revealed no significant changes. The PVCs disappeared with the peak exercise. Patient did not have any chest pain or any significant arrhythmis with the exercise Sestamibi was injected 1 minute prior to the peak exercise During the recovery phase, there were no new changes. The EKG reverted back to the baseline Blood pressure at the end of the recovery phase was 171/100 mm Hg with a heart rate of 91 per minute. CONCLUSION: 1. No significant EKG changes with the treadmill exercise 2. No exercise-induced chest pain or cardiac arrhythmia. The baseline ventricular arrhythmia disappeared with the peak exercise 3. Slightly impaired exercise tolerance, attained a maximum of 7.0 METs 4. Sestamibi/Sestamibi perfusion results pending; see separate report. Electronically Signed On 12-05-2024 16:09:37 CDT by Rainer Henley M.D. [email or web address]
--- NOTE | 2024-12-03 08:28 | NMCV_ITS ---
NM lorenzo perf SPECT r/s* [id number] Chiquita Gaspar Age: 54 Gender: F : 1970 Exam Date: 12/03/2024 09:02 Ordering Phys: Yuan Shannon MD ([email or web address]) Technologist: JENELLE Thornton Exam Location: [facility] Indications: cp STRESS TEST [facility] IMAGE PROTOCOL Rest/Stress 1 Exercise Day Radiopharmaceutical Dose (mCi) Administration Site Administered by Rest: Tc-99m 10.8 IV JENELLE Castellon Sestamibi Stress:Tc-99m 32.7 IV JENELLE Thornton Sestamito Rest: 03-Dec-2024 60 Discovery 630 Stress: 03-Dec-2024 15 Discovery 630 Radiopharmaceutical was injected at 89 % maximum heart rate. Images obtained in supine and prone position. SPECT RESULTS Technical Quality: Good Raw Data Analysis: Normal Image Corrections: No attenuation or motion correction applied Summed Stress Score: 16 Summed Rest Score: 12 Summed Difference Score: 4 PERFUSION FINDINGS Moderate to large area of moderate to severely decreased tracer uptake involving the inferior, inferolateral, anterolateral and apical regions. Some reversibility was noted in the anterolateral and apical anterior region. FUNCTIONAL RESULTS (calculated via Gated SPECT) Stress Image LV EF (%): 49 Stress EDV (mL):89 TID: 1.03 Stress ESV (mL):45 FUNCTIONAL FINDINGS: Segmental wall motion analysis revealed a mild diffuse hypokinesia of the inferolateral and apical region IMPRESSIONS 1. Myocardial perfusion imaging revealing moderate to large area of persistent decreased tracer uptake involving the inferior, inferolateral and apical regions with some area of reversibility in the anterolateral and apical regions suggesting extensive myocardial scarring involving the distribution of the right coronary artery and circumflex artery with some areas of ischemia in the circumflex territory. The summed difference score was 4 with stress score of 16. 2. LV ejection fraction of 49%. 3. LV wall motion analysis revealing mild diffuse hypokinesia of the inferolateral and apical regions. 4. LV volume, upper limit of normal, end-systolic volume of 45 mL. No similar previous studies are available for comparison Dr Rainer Henley MD FAC (Electronically Signed) Final Date: 03 December 2024 13:31 S
[2024-12-03 09:59] VITALS: BP 172/99; PULSE 89
== END 2024-12-03 08:05 | disposition home or self-care (01) ==
LOC: CDL 08:05
PROVIDERS: PCP Nurse Practitioner Family; Visit Provider Internal Medicine Cardiovascular Disease
DX: R07.9 Chest pain, unspecified (principal); R93.1 Abnormal findings on diagnostic imaging of heart and coronary circulation
CPT/HCPCS: 36415; 78452; 93017; A9500

== ENCOUNTER 2025-02-19 10:00 | Outpatient (CLI) | payer BC, SELFPAY ==
[2025-02-19 11:03] LABS: Basophils # 0.1 10^3/uL (0.0-0.1); Basophils % 0.9 %; Eosinophils # 0.2 10^3/uL (0.0-0.8); Eosinophils % 3.1 %; Hematocrit 41.3 % (36-47); Lymphocytes % 26.3 %; Mean Corpuscular HGB Conc 32.2 g/dL (30-55); Mean Corpuscular Hemoglobin 29.3 pg (27-33); Mean Platelet Volume 10.4 fL (7.4-10.4); Monocytes # 0.6 10^3/uL (0.2-0.9); Monocytes % 7.6 %; Neutrophils # 4.78 10^3/uL (1.8-7.7); Neutrophils % 61.8 %; Nucleated Red Blood Cells % 0 %; Platelet Count 305 10^3/cmm (157-399); Red Blood Count 4.54 10^6/uL (3.85-5.65); Red Cell Distribution Width 11.9 % (12.1-15.1); White Blood Count 7.73 10^3/uL (3.29-11.43)
[2025-02-19 11:27] LABS: Anion Gap 13.6 (5-19); Blood Urea Nitrogen 21 mg/dL (6-20); Carbon Dioxide 28 mmol/L (22-29); Chloride 105 mmol/L (98-107); Glomerular Filtration Rate 74.2 mL/min (90-130); Glucose 114 mg/dL (65-115); Osmolality Calculated 298 mOsm/kg (285-295); Potassium 4.6 mmol/L (3.5-5.1); Sodium 142 mmol/L (136-145)
== END 2025-02-19 10:01 | disposition home or self-care (01) ==
PROVIDERS: PCP Nurse Practitioner Family; Visit Provider Nurse Practitioner Family
DX: I25.10 Atherosclerotic heart disease of native coronary artery without angina pectoris (principal); I10 Essential (primary) hypertension
CPT/HCPCS: 36415; 80048; 85025

== ENCOUNTER 2025-03-02 07:36 | Outpatient (CLI) | payer BC, SELFPAY ==
--- NOTE | 2025-02-27 12:11 | PC.NURSE ---
called and left message about pre cath instructions and advised to call back if patient has any questions.
[2025-03-02] VITALS (19 sets, daily range): BP systolic 115–161; BP diastolic 63–117; PULSE 58–84; RESP 13–18; TEMP 36.7; O2SAT 93–97; BMI 29.9
--- NOTE | 2025-03-02 07:30 | XACV_ITS ---
Exam Room: 2 Ht: 170 cm Wt: 87 kg BSA: 2.05 m2 Gender: Female : 1970 Any Known Allergies: No known allergies Exam Priority: Routine Procedure(s): Procedure Description: Diagnostic procedure Procedure Description: Left Heart Catheterization Procedure Description: Left ventriculography Procedure Description: Coronary Angiography Diagnostic Cath Status: Elective Diagnostic Findings * INDICATION: Chest pain/ worsening dyspnea on exertion/abnormal stress test. * No significant disease noted in the Left Main, Left Anterior Descending, Right, or Circumflex coronary arteries. * Coronary angiography shows right dominance. Conclusions 1. No significant disease noted in the Left Main, Left Anterior Descending, Right, or Circumflex coronary arteries. 2. Mild left ventricular systolic dysfunction. Ejection fraction of 40%. Recommendations * Aggressive risk factor modification. * Outpatient cardiology follow up in 2 weeks. Interventional RX Recommendation: medical therapy and/or counseling Diagnostic RX Recommendation: medical therapy and/or counseling Anticoagulation: Heparin Ventriculography Ejection Fraction: 40.0 % Pressures Phase:Rest AO : 107 / 86 ( 97 ) @ 9:53:00 AM 127 / 78 ( 100 ) @ 9:57:00 AM 146 / 84 ( 112 ) @ 9:57:00 AM LV : 154 / 2 / 24 @ 9:56:00 AM 147 / 3 / 24 @ 9:57:00 AM 143 / 3 / 23 @ 9:57:00 AM Valves Phase:DefaultPhase AV : 14.0 @ 9:02:18 AM AV Mean Gradient: 17.0 @ 9:02:18 AM Clinical Evaluation EBL: 5mL-10mL Procedural Details Procedure Consent Obtained. Pre-Procedure Time Out. Identified patient by full name and date of as verbalized by the patient/guarantor. Does the consent match the physician's order: Yes. Accurate & Complete Informed Consent: Yes. Inpatient/Outpatient History & Physical on Chart: Yes. If H&P is completed, is and addenduem needed: No; If yes, is the addendum complete: N/A. Visualize and Verify Site with Patient/Guarantor: N/A. Relevant Radiology Images available: Yes. Pre-op teaching completed and patient verbalized understanding. The risks, benefits, and alternatives of sedation and/or procedure were discussed by physician. The patient agrees to continue. Procedure started. Current Diagnosis : Chest Pain. [facility] Clinical Fraility Score: 3: Managing Well. 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 Chest Pain Symptom Assessment: Typical Angina Symptoms. Correct patient, site and procedure confirmed by cath team. Current diagnosis: Chest Pain. PERRLA. 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 Lungs clear x 5 lobes. IV Site on Arrival: 20 gauge in the left anticubital. IV Fluids: 0.9% NaCl at KVO. 0 mL infused prior to laborer pole crew. Pre Procedural Pulses: bilateral dorsalis pedis was 3+. Pre Procedural Pulses: bilateral posterior tibial was 2+. Pre Procedural Pulses: bilateral radial was 2+. Oxygen started at 2liters/min via nasal canula. right groin was prepped with chloroprep then draped in the usual sterile fashion. right radial was prepped with chloroprep then draped in the usual sterile fashion. Baseline sample Acquired. HR: 68 BPM. Physician arrived. Physician scrubbed in. Immediate Pre-Procedure Time Out. Correct Patient: Yes; Correct Procedure: Yes; Correct Site: Yes; Correct Patient Position: Yes; Correct Supplies: Yes; Dried Flammable Prep: Yes; Blood Products Available: N/A;. Ultrasound being used to obtain arterial access. Lidocaine 1% infiltrated to the right radial. Arterial access obtained. Lidocaine 1% infiltrated to the right radial. A 5 grenadian TIG catheter in over wire. Multiple views taken of left coronary artery. Catheter redirected to the RCA. Multiple views taken of right coronary artery. Catheter removed over the exchange wire. A 5 grenadian Angled Pig catheter in over wire. EDP Sample taken: LV 154/2,24; HR: 83 BPM; SpO2: 97%. LV gram performed in AGUILAR @ 10 mL/second for a total of 30 mL. EDP Sample taken: LV 147/3,24; HR: 76 BPM; SpO2: 97%. Pullback taken: LV 143/3,23; AO 127/78(100); Mean: 17mmHg, Peak to Peak: 14mmHg, SEP: 23sec/min; HR: 77 BPM; SpO2: 97%. Catheter removed over the exchange wire. Vital chart was stopped. A TR Band was successful obtaining hemostatsis at the Right Radial artery insertion site. Post Procedure: Pulses reassessed and unchanged. PERRLA. 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 No VTE prophylaxis required. Medication's Wasted: Other = Fentanyl 25mcg Versed 1 mg. Medication's Wasted: Lidocaine 1% = 17 mL. Total IV fluids: 20 mL. Medication's Wasted: Nitro = 49.8 mcg. Medication's Wasted: Heparin = 1000 units. Post-op diagnosis: Non-obstructive CAD. Complications: None. Estimated blood loss: 5mL-10mL. Responsiveness - Normal response to verbal stimuli; alert and oriented, PERRLA. Airway - Unaffected, no intervention required; spontaneous ventilation. Circulation: W/N/L, pulses unchanged. Nausea/Vomiting: No. Procedure completed. Patient transferred by wheelchair to CPRU. Access Site Site: Right Radial artery Sheath Size: 6 Fr Hemostasis Method: TR Band Hemostasis Success: Successful Procedure Medications Start: 8:43 AM Stop: 8:43 AM Medication: Versed Amount: 1 mg Route: I.V. Start: 8:43 AM Stop: 8:43 AM Medication: Fentanyl Amount: 50 mcg Route: I.V. Start: 8:48 AM Stop: 8:48 AM Medication: Fentanyl Amount: 25 mcg Route: I.V. Start: 8:50 AM Stop: 8:50 AM Medication: Nitrogylcerin Amount: 200 mcg Route: I.A. Start: 8:52 AM Stop: 8:52 AM Medication: Heparin Amount: 5000 units Route: I.V. I, the attending physician, have reviewed and verified all procedure medications. Yes, all medications given per verbal order History/Risk Factors Hypertension: Yes Dyslipidemia: No Peripheral Arterial Disease (PAD): No Myocardial Infarction (AK): Yes Obesity: Yes Renal Disease: No Tobacco Use: Never Prior Interventions PCI: Yes CABG: No Valve Surgery: No Date of PCI: 07/20/2024 Report Signatures Finalized by Erasto Guillory MD on 03/14/2025 03:16 PM
[2025-03-02] MEDS: diphenhydrAMINE 50 mg Capsule PO (08:00)
--- NOTE | 2025-03-02 08:22 | P.HPUD_ITS ---
Surgery/Procedure H&P Update DATE OF PROCEDURE: March 02, 2025 DATE H&P PERFORMED: 02/19/25 H&P UPDATE INFORMATION: I have reviewed H&P completed within last 30 days, I have examined patient prior to procedure and No changes to prior documentation PREOP DIAGNOSIS: Chest pain/ worsening dyspnea on exertion/abnormal stress test PRIMARY INDICATION FOR PROCEDURE: Chest pain/ worsening dyspnea on exertion/abnormal stress test PLANNED PROCEDURE: Operation Date: 03/02/25 08:30 Proposed Procedures p Cardiac Catheterization - [facility] w/wo LV & Coros(Left) - Erasto Guillory M.D Possible Percutaenous coronary intervention PATIENT REASSESSED PRIOR TO SEDATION, WITH NO CHANGE NOTED: Yes PHYSICAL EXAM: alert, oriented x 3, clear to auscultation bilaterally and regular rate & rhythm AIRWAY EVAL/ANESTHESIA PLAN: normal airway, ASA III, Monitored Anesthesia, Local Anesthesia, Risks, benefits & alternatives of sedation and/or procedure discussed and Patient agrees to continue as planned ADDITIONAL INFORMATION: Moderate sedation
--- NOTE | 2025-03-02 09:10 | PC.NURSE ---
Pt arrived from post cath to CPRU 3 for recovery. TR band in place to right wrist. Site asymptomatic. No signs of bleeding or hematoma. Radial pulse palpable. Pt alert and oriented X 3. Denies pain. Placed on bedside surveillance system monitor with call light in reach. Pt denies needs at this time.
--- NOTE | 2025-03-02 10:19 | PM.PROC ---
Procedure Note: Date of procedure: 03/02/25 Pre-procedure diagnosis: Chest pain/ dyspnea on exertion/abnormal stress test Post-procedure diagnosis: other (Patent coronary arteries. Patent left circumflex artery stent.) Procedure: Patent coronary arteries. Patent prior stent Performing Provider: Erasto Guillory Complications: None Condition: stable Disposition: same day Coding Level of Care Code Acute Code for Padilla Fwhermelinda
--- NOTE | 2025-03-02 13:36 | PC.NURSE ---
TR band removal. Started releasing air from TR band at 1115. 1-3ml air released every 5-15min until TR band deflated. TR band deflated at 1215 . Site site slightly bruised no signs of hematoma or bleeding. Radial pulse palpable. Large bandaid applied over site.
== END 2025-03-02 13:41 | disposition home or self-care (01) ==
PROVIDERS: PCP Nurse Practitioner Family; Visit Provider Internal Medicine
DX: R94.39 Abnormal result of other cardiovascular function study (principal); R07.9 Chest pain, unspecified; R06.09 Other forms of dyspnea; I25.2 Old myocardial infarction; E66.9 Obesity, unspecified; Z68.29 Body mass index [BMI] 29.0-29.9, adult; Z95.5 Presence of coronary angioplasty implant and graft; Z79.82 Long term (current) use of aspirin; I25.10 Atherosclerotic heart disease of native coronary artery without angina pectoris; K21.9 Gastro-esophageal reflux disease without esophagitis; G47.33 Obstructive sleep apnea (adult) (pediatric); G25.81 Restless legs syndrome
CPT/HCPCS: 93458; 99152; 99153; C1769; C1887; C1894; J1644; J2250; J3010; J3490; J7030; J9999; Q0163; Q9967

== ENCOUNTER 2025-03-11 13:34 | Outpatient (CLI) | payer BC, SELFPAY ==
--- NOTE | 2025-03-11 14:00 | USR_ITS ---
PROCEDURE INFORMATION: Exam: US Duplex Right Upper Extremity Arteries Exam date and time: 03/11/2025 1:45 PM Age: 54 years old Clinical indication: Pain; Arm, lower; Prior surgery; Surgery date: <1 month; Surgery type: Angiogram through the right radial; Additional info: Rule out pseudoaneurysm TECHNIQUE: Imaging protocol: Right Real-time ultrasound scan of the arteries of the right upper extremity with 2-D perez scale, color Doppler flow and spectral waveform analysis. COMPARISON: No relevant prior studies available. FINDINGS: Right subclavian artery: No occlusion or significant stenosis. Normal multiphasic waveform. Peak velocity 94 cm/s. Right axillary artery: No occlusion or significant stenosis. Normal multiphasic waveform. Peak velocity 64 cm/s. Right brachial artery: No occlusion or significant stenosis. Normal multiphasic waveform. Peak velocity 65 cm/s. Right radial artery: No occlusion or significant stenosis. Normal multiphasic waveform. Peak velocity 52 cm/s. Right ulnar artery: No occlusion or significant stenosis. Normal multiphasic waveform. Peak velocity 51 cm/s. US/[place] [id number] IMPRESSION: 1. No arterial pseudoaneurysm is visible. 2. No sign of hemodynamically significant arterial stenosis or occlusion.
== END 2025-03-11 13:35 | disposition home or self-care (01) ==
PROVIDERS: PCP Nurse Practitioner Family; Visit Provider Nurse Practitioner Family
DX: M79.601 Pain in right arm (principal)
CPT/HCPCS: 93931

== ENCOUNTER 2025-07-24 12:48 | Outpatient (CLI) | payer BC, SELFPAY ==
--- NOTE | 2025-07-24 12:56 | MM_ITS ---
WS: [id number] BILATERAL 3D TOMOSYNTHESIS DIGITAL SCREENING MAMMOGRAPHY WITH CAD CLINICAL INFORMATION: SCREENING HISTORY: Screening mammogram. No current complaints. COMPARISON: 2021 TECHNIQUE: Bilateral CC and MLO views. FINDINGS: Scattered fibroglandular densities bilaterally. No suspicious focal mass, asymmetry, calcifications, or architectural distortion. No evidence of malignancy. MM/MM scr BI tomosynthesis [id number] IMPRESSION: DENSITY: There are scattered areas of fibroglandular density. BI-RADS: 1 - Negative. FOLLOW UP: 1 Year Follow-up Recommend return to annual screening mammography.
== END 2025-07-24 12:49 | disposition home or self-care (01) ==
LOC: RAD 12:50
PROVIDERS: PCP Nurse Practitioner Family; Visit Provider Nurse Practitioner Family
DX: Z12.31 Encounter for screening mammogram for malignant neoplasm of breast (principal); R92.323 Mammographic fibroglandular density, bilateral breasts
CPT/HCPCS: 77063; 77067